=== PATIENT | female | born 1965 ===

== ENCOUNTER → 2018-09-16 | Outpatient (CLI) | payer OTHER ==
--- NOTE | 2018-09-17 08:45 | MM ---
Reason for exam: additional evaluation requested from prior study. Last mammogram was performed 1 year and 3 months ago. History: Patient is postmenopausal. Retro-pectoral saline implants in both breasts, 1994. Physical Findings: Nurse did not find any significant physical abnormalities on exam. MG Diag Mamm Implants DANILO w CAD Bilateral CC, MLO, and ID view(s) were taken. Prior study comparison: June 13, 2017, bilateral MG screening mammo implant/CAD. March 09, 2015, mammogram, performed at [facility]. The breast tissue is heterogeneously dense. This may lower the sensitivity of mammography. Stable benign calcifications. Bilateral implants are intact. No significant new findings when compared with previous films. These results were verbally communicated with the patient and result sheet given to the patient on 09/16/18. ASSESSMENT: Benign, BI-RAD 2 RECOMMENDATION: Follow-up diagnostic mammogram of both breasts in 1 year.
== END | disposition home or self-care (01) ==
LOC: RADMAMWWP 14:27
PROVIDERS: ATTEND Family Medicine
DX: N60.09 Solitary cyst of unspecified breast (principal)
CPT/HCPCS: 77066

== ENCOUNTER → 2020-10-14 | Outpatient (CLI) | payer OTHER ==
--- NOTE | 2020-10-15 04:19 | MR ---
EXAMINATION TYPE: MR cervical spine wo con DATE OF EXAM: 10/14/2020 COMPARISON: None HISTORY: Neck pain into arms Multiplanar multiecho imaging of the cervical spine was performed with no contrast. Normal alignment. There is mild posterior disc herniation at C3-4 and C4-5. There is developmentally adequate spinal canal. Canal measures 9 mm at the narrowest point at C4-5. There is mild posterior di sc bulging at C5-6 and C6-7. Cervical spinal cord has normal signal pattern. There is no edema. Disc herniation extends to the right side at C3-4 and is central aspect C4-5. There is some impingement on the neural foramen on the right side at C3-4 due to disc herniation. I see no bony destructive process. Brainstem appears intact. There is no compression fracture. 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 IMPRESSION: Mild multilevel spondylotic changes. Mild posterior disc herniations at C3-4 and C4-5 as above. No si gnificant spinal stenosis. Right side C3-4 neural foraminal impingement.
== END | disposition home or self-care (01) ==
LOC: RADMRIMAIN 16:25
PROVIDERS: ATTEND Orthopaedic Surgery
DX: M50.21 Other cervical disc displacement, high cervical region (principal); M47.812 Spondylosis without myelopathy or radiculopathy, cervical region; M50.81 Other cervical disc disorders, high cervical region
CPT/HCPCS: 72141